=== PATIENT | female | born 1995 | race Caucasian/White ===

== ENCOUNTER 2017-01-14 20:10 | Outpatient (CLI) | payer BC ==
[~2017-01-14] VITALS: Ht 175.3 cm; Wt 146.0 kg
== END 2017-01-14 21:20 | disposition home or self-care (01) ==
LOC: LDOP 20:10
PROVIDERS: ATTEND Obstetrics & Gynecology
DX: O42.92 Full-term premature rupture of membranes, unspecified as to length of time between rupture and onset of labor (principal); O99.213 Obesity complicating pregnancy, third trimester; O62.9 Abnormality of forces of labor, unspecified; Z3A.37 37 weeks gestation of pregnancy
CPT/HCPCS: 59025; 89060; 99211; G0463; Q0114

== ENCOUNTER 2017-01-24 01:40 | Outpatient (CLI) | payer BC ==
[~2017-01-24] VITALS: Ht 162.6 cm; Wt 146.0 kg
== END 2017-01-24 02:50 | disposition home or self-care (01) ==
LOC: LDOP 01:40
PROVIDERS: ATTEND Obstetrics & Gynecology
DX: O62.9 Abnormality of forces of labor, unspecified (principal); O99.213 Obesity complicating pregnancy, third trimester; Z3A.38 38 weeks gestation of pregnancy
CPT/HCPCS: 59025; 99211; G0463

== ENCOUNTER 2017-01-29 04:01 | Inpatient (IN) | payer BC ==
[~2017-01-29] VITALS: Ht 175.3 cm; Wt 145.4 kg
[2017-01-29 04:10] VITALS: BP 172/100
[2017-01-29] MEDS ORDERED: OXYTOCIN 30U/ 0.9% NaCL 500ML 500 ML IV ONE (04:22)
[2017-01-29] MEDS: LACTATED RINGERS 1,000 ML IV SCH ×6 (04:30→21:44)
[2017-01-29] MEDS ORDERED: FENTANYL PF 100 MCG/2ML IVPush PRN (04:30)
[2017-01-29] MEDS ORDERED: ONDANSETRON 2MG/ML, 2ML IVPush PRN (04:30)
[2017-01-29] MEDS ORDERED: FENTANYL PF 100 MCG/2ML IV PRN (04:30)
[2017-01-29] MEDS ORDERED: FENTANYL PF 100 MCG/2ML ONE (04:42)
[2017-01-29 05:16] LABS: ASPARTATE AMINO TRANSFERASE 15 U/L (15-37)
[2017-01-29 05:19] LABS: BLOOD UREA NITROGEN 9 mg/dL (7-18)
[2017-01-29] MEDS ORDERED: FENTANYL/BUPIV./NS/PF 250 ML EPIDCONT ONE ×2 (05:42→05:55)
[2017-01-29] MEDS ORDERED: BUPIVACAINE/PF 0.25% ONE (05:42)
[2017-01-29] MEDS ORDERED: FENTANYL/BUPIV./NS/PF 250 ML EPIDCONT SCH (05:44)
[2017-01-29] MEDS ORDERED: BUPIVACAINE 0.25% ONE (05:55)
[2017-01-29] MEDS ORDERED: NALOXONE 0.4 MG/ML, 1ML IVPush PRN (06:00)
[2017-01-29] MEDS ORDERED: LACTATED RINGERS 1,000 ML IVBOLUS PRN (06:00)
[2017-01-29] MEDS ORDERED: EPHEDRINE 50 MG/ML, 1ML IVPush PRN (06:00)
[2017-01-29] MEDS ORDERED: OXYTOCIN 30U/ 0.9% NaCL 500ML 500 ML ONE ×2 (07:19→18:00)
[2017-01-29] MEDS ORDERED: MISOPROSTOL 200 MCG TABLET ONE (07:19)
[2017-01-29] MEDS ORDERED: LIDOCAINE 1%, 20ML ONE (07:19)
[2017-01-29] MEDS ORDERED: OXYTOCIN 30U/ 0.9% NaCL 500ML 500 ML IV PRN (07:48)
[2017-01-29] MEDS: D5%-LACTATED RINGERS 1,000 ML IV SCH ×3 (08:47→20:22)
[2017-01-29] MEDS ORDERED: NEWBORN KIT ONE (11:57)
[2017-01-29] MEDS: AMPICILLIN 2 GM in SODIUM CHLORIDE 0.9% 100 ML IV SCH ×2 (16:50→22:39)
[2017-01-29] MEDS ORDERED: GENTAMICIN 0 MG in SODIUM CHLORIDE 0.9% 100 ML IV SCH (17:00)
[2017-01-29] MEDS ORDERED: HYDROcodone/APAP 5/325 TABLET PO PRN (18:00)
[2017-01-29] MEDS ORDERED: DOCUSATE 100 MG CAPSULE PO PRN (18:00)
[2017-01-29] MEDS ORDERED: GENTAMICIN PER PHARMACY MC PRN (18:00)
[2017-01-29] MEDS ORDERED: MISOPROSTOL 200 MCG TABLET PR PRN (18:00)
[2017-01-29] MEDS ORDERED: SODIUM CHLORIDE 0.9% IV ONE (18:00)
[2017-01-29] MEDS ORDERED: ONDANSETRON 2MG/ML, 2ML IV PRN (18:00)
[2017-01-29] MEDS ORDERED: GENTAMICIN IV ONE (18:00)
[2017-01-29] MEDS: OXYTOCIN 30U/ 0.9% NaCL 500ML 500 ML IV SCH (18:17)
[2017-01-29] MEDS ORDERED: PHARMACOKINETIC MONITORING MC PRN (18:30)
[2017-01-29] MEDS ORDERED: IBUPROFEN 600 MG TABLET ONE (19:19)
[2017-01-29] MEDS: IBUPROFEN 600 MG TABLET PO PRN (19:23)
[2017-01-29 20:55] VITALS: BP 117/75
[2017-01-30] VITALS (7 sets, daily range): BP systolic 98–127; BP diastolic 52–79
[2017-01-30] MEDS: HYDROcodone/APAP 5/325 TABLET PO PRN ×3 (00:16→17:21)
[2017-01-30] MEDS: GENTAMICIN 200 MG in SODIUM CHLORIDE 0.9% 50 ML IV SCH ×2 (02:16→10:53)
[2017-01-30] MEDS: OXYTOCIN 30U/ 0.9% NaCL 500ML 500 ML IV SCH ×2 (03:52→05:55)
[2017-01-30] MEDS: LACTATED RINGERS 1,000 ML IV SCH ×2 (03:56→13:44)
[2017-01-30] MEDS: AMPICILLIN 2 GM in SODIUM CHLORIDE 0.9% 100 ML IV SCH ×2 (04:57→11:45)
[2017-01-30] MEDS ORDERED: PRENATAL VIT/IRON/FA 1 EACH TABLET ONE (07:50)
[2017-01-30] MEDS: PRENATAL VIT/IRON/FA 1 EACH TABLET PO SCH (07:51)
[2017-01-30] MEDS: IBUPROFEN 600 MG TABLET PO PRN ×2 (10:57→17:22)
[2017-01-31 06:45] VITALS: BP 120/75
[2017-01-31] MEDS: IBUPROFEN 600 MG TABLET PO PRN (07:51)
[2017-01-31] MEDS: PRENATAL VIT/IRON/FA 1 EACH TABLET PO SCH (07:51)
[2017-01-31] MEDS: HYDROcodone/APAP 5/325 TABLET PO PRN (07:51)
[2017-01-31] MEDS ORDERED: FERROUS GLUCONATE 324 MG TABLET PO SCH (08:00)
[2017-01-31] MEDS ORDERED: HYDR-3240 PO (08:14)
[2017-01-31] MEDS ORDERED: DOCU-30 PO (08:14)
[2017-01-31] MEDS ORDERED: IBUP800T PO (08:15)
[2017-01-31] MEDS ORDERED: FERR325T23 PO (08:16)
== END 2017-01-31 15:53 | disposition home or self-care (01) | DRG 774 ==
LOC: LDOP 04:01 → LDIP 04:26 → 2NW 20:32
PROVIDERS: ADMIT Obstetrics & Gynecology; ATTEND Obstetrics & Gynecology
PROC: 10E0XZZ Delivery of Products of Conception, External Approach (ICD-10-PCS; principal; 2017-01-29)
PROC: 10907ZC Drainage of Amniotic Fluid, Therapeutic from Products of Conception, Via Natural or Artificial Opening (ICD-10-PCS; 2017-01-29)
PROC: 0HQ9XZZ Repair Perineum Skin, External Approach (ICD-10-PCS; 2017-01-29)
PROC: 00HU33Z Insertion of Infusion Device into Spinal Canal, Percutaneous Approach (ICD-10-PCS; 2017-01-29)
PROC: 3E0R3CZ (ICD-10-PCS; 2017-01-29)
DX: O99.214 Obesity complicating childbirth (principal); O72.1 Other immediate postpartum hemorrhage; O41.1230 Chorioamnionitis, third trimester, not applicable or unspecified; Z68.42 Body mass index [BMI] 45.0-49.9, adult; E66.01 Morbid (severe) obesity due to excess calories; O76 Abnormality in fetal heart rate and rhythm complicating labor and delivery; O77.0 Labor and delivery complicated by meconium in amniotic fluid; O70.0 First degree perineal laceration during delivery; Z3A.39 39 weeks gestation of pregnancy; Z37.0 Single live birth
CPT/HCPCS: 36415; 80053; 81001; 82248; 84550; 85025; 86850; 86900; J0290; J3010; J3490; J1580; J2590; J7120; J7121